=== PATIENT | male | born 1940 ===

== ENCOUNTER 2019-07-31 08:52 | Inpatient (IN) | payer OTHER, BC ==
[~2019-07-31] VITALS: Ht 170.2 cm; Wt 61.2 kg
[2019-08-06] MEDS ORDERED: LOSARTAN POTAS100 MG PO (16:54)
[2019-08-13] MEDS ORDERED: CLOPIDOGREL BIS75 MG PO (14:38)
[2019-08-13] MEDS ORDERED: LIPITOR40 MG PO (14:39)
[2019-08-13] MEDS ORDERED: LANOXIN125 MCG PO (14:39)
[2019-08-13] MEDS ORDERED: LOSARTAN POTAS100 MG PO (14:39)
[2019-08-13] MEDS ORDERED: METOPROLOL TART50 MG PO (14:39)
[2019-08-13] MEDS ORDERED: HYDROCHLOROTHIA25 MG PO (14:40)
[2019-08-13] MEDS ORDERED: NIFEDIPINE ER60 MG PO (14:40)
[2019-08-13] MEDS ORDERED: HYDRALAZINE HCL50 MG PO (14:40)
[2019-08-13] MEDS ORDERED: AMPICILLIN TRI500 MG PO (14:41)
== END 2019-08-13 20:07 | DRG 40 ==
LOC: ER 08:52 → SURH 17:58 → ICU 17:58 → SURH 08-07 20:33
PROVIDERS: ADMIT Internal Medicine
PROC: BW28ZZZ Computerized Tomography (CT Scan) of Head (ICD-10-PCS; 2019-07-31)
PROC: B030ZZZ Magnetic Resonance Imaging (MRI) of Brain (ICD-10-PCS; 2019-07-31)
PROC: B24BZZZ Ultrasonography of Heart with Aorta (ICD-10-PCS; 2019-07-31)
PROC: B345ZZZ Ultrasonography of Bilateral Common Carotid Arteries (ICD-10-PCS; 2019-07-31)
PROC: 3E0F7GC Introduction of Other Therapeutic Substance into Respiratory Tract, Via Natural or Artificial Opening (ICD-10-PCS; 2019-08-04)
PROC: 4A12X4Z Monitoring of Cardiac Electrical Activity, External Approach (ICD-10-PCS; 2019-08-07)
PROC: 0JBC0ZZ Excision of Pelvic Region Subcutaneous Tissue and Fascia, Open Approach (ICD-10-PCS; principal; 2019-08-10)
PROC: 0JBG0ZZ Excision of Right Lower Arm Subcutaneous Tissue and Fascia, Open Approach (ICD-10-PCS; 2019-08-10)
PROC: 0JBN0ZZ Excision of Right Lower Leg Subcutaneous Tissue and Fascia, Open Approach (ICD-10-PCS; 2019-08-10)
DX: I63.412 Cerebral infarction due to embolism of left middle cerebral artery (principal); L89.213 Pressure ulcer of right hip, stage 3; L89.013 Pressure ulcer of right elbow, stage 3; L89.893 Pressure ulcer of other site, stage 3; I50.21 Acute systolic (congestive) heart failure; N39.0 Urinary tract infection, site not specified; N17.8 Other acute kidney failure; G81.91 Hemiplegia, unspecified affecting right dominant side; R65.10 Systemic inflammatory response syndrome (SIRS) of non-infectious origin without acute organ dysfunction; E85.4 Organ-limited amyloidosis; E87.0 Hyperosmolality and hypernatremia; L98.428 Non-pressure chronic ulcer of back with other specified severity; I96 Gangrene, not elsewhere classified; R47.01 Aphasia; I11.0 Hypertensive heart disease with heart failure; I27.20 Pulmonary hypertension, unspecified; J44.9 Chronic obstructive pulmonary disease, unspecified; I68.0 Cerebral amyloid angiopathy; E87.6 Hypokalemia; D64.9 Anemia, unspecified; B95.2 Enterococcus as the cause of diseases classified elsewhere; I48.91 Unspecified atrial fibrillation
CPT/HCPCS: 70551